=== PATIENT | female | born 1990 | race Caucasian/White ===

== ENCOUNTER 2016-12-09 19:41 | Emergency (ER) | payer BC ==
[2016-12-09 19:45] VITALS: BP 139/89
[2016-12-09] MEDS ORDERED: methylPREDNISolone 125 MG* 2 ML VIAL IM ONE (19:48)
[2016-12-09] MEDS ORDERED: Famotidine TAB* 20 MG PO ONE (19:48)
--- NOTE | 2016-12-09 20:35 | UC ---
Allergic Reaction HPI - HPI Summary HPI Summary: AT 1800 ATE FOOD WITH UNKNOWN INGREDIENTS. HAS TREE NUT ALLERGY. THROAT FELT SWOLLEN AND ITCHY. TOOK 50mg BENADRYL. FELT BETTER INITIALLY BUT NOW HAVING ITCHINESS IN THROAT. NO SOB. NO THROAT SWELLING. NO RASHES. NO LIP SWELLING. NO EPIPEN AT AT HOME. - History of Current Complaint Chief Complaint: UCAllergicReaction Stated Complaint: ALLERGIC REACTION Time Seen by Provider: 12/09/16 19:47 Hx Obtained From: Patient Hx Last Menstrual Period: 11/23/16 Onset/Duration: Gradual Onset, Lasting Hours, Still Present Severity Initially: Mild Severity Currently: Mild Character: Pruritus Alleviating Factor(s): Antihistamines Associated Signs And Symptoms: Negative: Abdominal Pain, Chest Pain, Cough Wheezing, Diaphoresis, Hoarseness, Lightheadedness, Nausea, Rash, Syncope, Throat Tightening, Vomiting - Related Hx Possible Reaction To: Food - Allergies/Home Medications Allergies/Adverse Reactions: Allergies Allergy/AdvReac Type Severity Reaction Status Date / Time Cefazolin Allergy Anaphylatic Verified 12/09/16 19:45 Shock Tree Nuts Allergy Anaphylatic Verified 12/09/16 19:45 Shock Home Medications: Home Medications diPHENhydraMINE PO* [Benadryl PO 25 MG TAB*] 50 mg PO PRN 12/09/16 [History] PMH/Surg Hx/FS Hx/Imm Hx Previously Healthy: Yes - Surgical History Surgical History: Yes Surgery Procedure, Year, and Place: brie in right femur, tonsillectomy - Family History Known Family History: Positive: None - Social History Lives: With Family Alcohol Use: Occasionally Substance Use Type: None Smoking Status (MU): Never Smoked Tobacco Review of Systems Constitutional: Negative Skin: Negative Eyes: Negative ENT: Other - THROAT ITCHINESS Respiratory: Negative Cardiovascular: Negative Gastrointestinal: Negative Genitourinary: Negative Motor: Negative Neurovascular: Negative Musculoskeletal: Negative Neurological: Negative Psychological: Negative All Other Systems Reviewed And Are Negative: Yes Physical Exam Triage Information Reviewed: Yes Appearance: Well-Appearing, No Pain Distress, Well-Nourished Vital Signs: Initial Vital Signs Temp 100.5 F 12/09/16 19:41 Pulse 75 12/09/16 19:41 Resp 18 12/09/16 19:41 BP 139/89 12/09/16 19:41 Pulse Ox 100 12/09/16 19:41 Vital Signs Reviewed: Yes Eye Exam: Normal ENT Exam: Normal ENT: Positive: Normal ENT inspection, TMs normal, Other: - AIRWAY PATENT Dental Exam: Normal Neck exam: Normal Neck: Positive: Supple, Nontender, No Lymphadenopathy Respiratory Exam: Normal Respiratory: Positive: Chest non-tender, Lungs clear, Normal breath sounds, No respiratory distress, No accessory muscle use Cardiovascular Exam: Normal Cardiovascular: Positive: RRR, No Murmur, Pulses Normal Abdominal Exam: Normal Musculoskeletal Exam: Normal Musculoskeletal: Positive: Strength Intact Neurological Exam: Normal Psychological Exam: Normal Skin Exam: Normal Allergic Reaction Course/Dx - Differential Dx/Diagnosis Differential Diagnosis/HQI/PQRI: Anaphylaxis, Angioedema, Bronchospasm, Erythema Nodosum, Local Allergic Reaction, Urticaria Provider Diagnoses: FOOD ALLERGY; GENERAL ALLERGIC REACTION Discharge - Discharge Plan Condition: Stable Disposition: HOME Prescriptions: Epinephrine [Epipen 2-Julio] 0.3 mg IM ONCE PRN #1 inj PRN Reason: Allergy Symptoms Patient Education Materials: Food Allergy (ED), Anaphylaxis (ED) Referrals: [facility] [Outside] No Primary Care Phys,NOPCP [Primary Care Provider] -
== END 2016-12-09 20:24 | disposition home or self-care (01) ==
LOC: UCEAST 19:41
DX: T78.1XXA Other adverse food reactions, not elsewhere classified, initial encounter (principal); R09.89 Other specified symptoms and signs involving the circulatory and respiratory systems; X58.XXXA Exposure to other specified factors, initial encounter
CPT/HCPCS: 96372; 99212; A9270-GY; G0463; J2930